=== PATIENT | female | born 1965 | race African-American/Black ===

== ENCOUNTER 2017-03-17 14:06 | Emergency (ER) | payer OTHER, MEDICARE ==
[~2017-03-17 14:06] MED LIST: ADVAIR DISKUS 21 DSK INH; AMIODARONE HCL200 MG PO; ATORVASTATIN CA20 MG PO; CARTIA XT120 MG PO; ENOXAPARIN100 MG/ML SC; GABAPENTIN100 MG PO; HUMALOG 100U100 U/ML SC; HYDROXYZINE HCL25 MG PO; LEVEMIR 10100 UNITS/ SC; LEVOTHYROXIN0.025 M1 PO; MIDODRINE HCL10 MG PO; MULTIVITAMIN1 TAB PO; MUPIROCIN CALCIUM2% TOP; OMEPRAZOLE20 MG PO; OXYCODONE HCL80 MG PO; OXYCONTIN (MONO40 MG PO; POLYETHYLE17 GM/Dos1 PO; PREDNISONE2.5 MG PO; PROTONIX 40MG T40 MG PO; RENAGEL800 MG PO; SENSIPAR60 MG PO; SODIUM BICARBO650 MG PO; TUSSIN100 MG/5 M PO; VENTOLIN H0.09 MG/Ac INH
--- NOTE | 2017-03-17 14:09 | ED AMS/SEIZURE/WEAK/DIZZY ---
History of Present Illness General Chief Complaint: General Adult Stated Complaint: BIBA FOR LETHARGY Source: patient, family, EMS Exam Limitations: clinical condition Vital Signs & Intake/Output Vital Signs & Intake/Output Vital Signs Date Time Temp Pulse Resp B/P B/P Pulse O2 O2 Flow FiO2 Mean Ox Delivery Rate 03/17 1638 96.8 76 20 127/59 99 Nasal 3.0L Cannula 03/17 1416 97.0 82 20 165/96 100 Room Air Allergies Coded Allergies: dipyridamole (From Persantine) (Severe, HEART PALPITATIONS AND RACING 10/03/16) piperacillin (From ZOSYN) (Severe, PT WAS INTUBATED LAST TIME 10/03/16) tazobactam (From ZOSYN) (Severe, PT WAS INTUBATED LAST TIME 10/03/16) Iodine and Iodide Containing Produc (Intermediate, ITCHING 10/03/16) metronidazole (From Flagyl) (Intermediate, MAKES HER HAVE BAD DREAMS 10/03/16) shellfish derived (Intermediate, ITCHING 10/03/16) Reconcile Medications Albuterol Sulfate (Ventolin Hfa) 90 MCG HFA.AER.AD 2 PUFF INH PRN SARCOIDOSIS (Reported) AMIODARONE HCL (Amiodarone HCl) 200 MG TABLET 1 TAB PO QAM HEART (Reported) Atorvastatin Calcium (Lipitor) 20 MG TABLET 1 TAB PO QPM CHOLESTEROL ( Reported) CINACALCET HCL (Sensipar) 60 MG TABLET 1 TAB PO QPM CALCIUM (Reported) DILTIAZEM HCL (Cartia Xt) 120 MG CAP.ER.24H 1 CAP PO QPM HEART (Reported) Enoxaparin Sodium 100 MG/ML SYRINGE 100 MG SC QPM BLOOD THINNER (Reported) FLUTICASONE/SALMETEROL (Advair 250-50 Diskus) 250 MCG-50 MCG/DOSE BLST.W.DEV 1 PUFF INH BID SARCOIDOSIS (Reported) Guaifenesin (Tussin) (Unknown Strength) SYR (Unknown Dose) PO PRN COUGH ( Reported) HYDROXYZINE HCL (Hydroxyzine HCl) 25 MG TABLET 1 TAB PO TID PRN ITCHING ( Reported) Insulin Detemir (Levemir) 100 UNIT/ML VIAL 14 UNITS SC QPM DIABETES (Reported ) Insulin Lispro (Humalog) 100 UNIT/ML VIAL DIABETES (Reported) Levothyroxine Sodium 0.025 MG TAB 0.025 MG PO QPM THYROID (Reported) MIDODRINE HCL (Midodrine HCl) 10 MG TABLET 1 TAB PO AD BP (Reported) Midodrine HCl 5 MG TABLET 20 MG PO DAILY HYPOTENSION (Reported) Multivitamin (Multiple Vitamins) 1 EACH TABLET 1 TAB PO DAILY SUPPLEMENT ( Reported) Mupirocin Calcium (Mupirocin) 2 % CREAM..G. 1 BUSHRA TOP PRN THIGHS/BACK ( Reported) Omeprazole 20 MG CAPSULE.DR 1 CAP PO QPM GI (Reported) OXYCODONE HCL (Oxycodone HCl ER) 80 MG TAB.ER.12H 1 TAB PO Q12H PAIN ( Reported) Oxycodone HCL (Oxycontin (Monograph Only)) 40 MG TAB.ER.12H 1 TAB PO BID PRN PAIN (Reported) Pantoprazole Sodium (Protonix) 40 MG TABLET. 1 TAB PO DAILY AC GI (Reported ) Polyethylene Glycol 3350 (Polyethylene Glycol (3350)) 17 GRAM POWD.PACK 17 GM PO EOD GI (Reported) Prednisone 2.5 MG TABLET 1 TAB PO QAM SARCOID (Reported) Sevelamer Hydrochloride (Renagel) 800 MG TAB 1 TAB PO WM KIDNEYS (Reported) Triage Nurses Notes Reviewed? yes Onset: Abrupt Duration: minute(s): (30) Timing: single episode today Injury Environment: home Severity: moderate, severe No Modifying Factors: none Associated Symptoms: LETHARGY HPI: 51 year old female with history of ESRD on HD, chronic painpresents via EMS from home for ams and lethargy. Patient's daughter reports that she was very sedated and could not be arroused. Daughter states that on arrival her mother looks much better but isstill off. She is unsure if she took more of her usual medications. Past History Travel History Traveled to [place] past 21 day No Medical History Any Pertinent Medical History? see below for history Cardiovascular: AFIB, CAD Respiratory: asthma, COPD Hepatic: SARCOIDOSIS Renal: UREMIA CHRONIC RENAL FAILURE Endocrine: diabetes Other Medical Hx: Sarcoidosis Pneumonia Vaccine: 09/18/16 Influenza Vaccine: 09/18/16 Surgical History Surgical History: BILAT ABOVE KNEE AMPUTAT Psychosocial History Who do you live with Patient/Self Services at Home Home Health Aide What is your primary language Guatemalan Family History Hx Contributory? No Review of Systems Review of Systems Constitutional: Denies: fever. EENTM: Reports: no symptoms. Respiratory: Denies: cough, short of breath. Cardiovascular: Denies: chest pain, palpitations. GI: Denies: abdominal pain. Genitourinary: Reports: no symptoms. Musculoskeletal: Reports: no symptoms. Skin: Reports: no symptoms. Neurological/Psychological: Reports: see HPI (lethargic), confusion. Hematologic/Endocrine: Denies: bruising, bleeding. Immunologic/Allergic: Reports: no symptoms. All Other Systems: Reviewed and Negative Physical Exam Physical Exam General Appearance: well developed/nourished, mild distress, moderate distress, obese, LETHARGIC Head: atraumatic, normal appearance Eyes: Bilateral: other (PINPOINT). Ears, Nose, Throat: normal pharynx, hearing grossly normal Neck: normal inspection, supple, full range of motion Respiratory: normal breath sounds, chest non-tender, no respiratory distress Cardiovascular: irregularly irregular Peripheral Pulses: 2+ radial (R), 2+ radial (L) Gastrointestinal: soft, non-tender Neurologic/Psych: no motor/sensory deficits, oriented x 3 Skin: intact, normal color, warm/dry Core Measures ACS in differential dx? No CVA/TIA Diagnosis: No Severe Sepsis Present: No Septic Shock Present: No Progress Differential Diagnosis: CVA/stroke, NARCOTIC OVERDOSE, CVA, TIA, SEPSIS, ELECTROLYTE SHIFT POST DIALYSIS Plan of Care: Orders Procedure Date/time Status Renal Dialysis Diet 03/18 B Active TROPONIN LEVEL 03/17 1409 Complete LACTIC ACID 03/17 1409 Complete ETHANOL 03/17 1409 Complete COMPREHENSIVE METABOLIC PANEL 03/17 1409 Complete CBC WITHOUT DIFFERENTIAL 03/17 1409 Complete EKG 03/17 1409 Active Laboratory Tests 03/17/17 1709: Lactic Acid Cancelled 03/17/17 1425: Anion Gap 17 H, Estimated GFR 12 L, BUN/Creatinine Ratio 7.9, Glucose 109 H, Lactic Acid 1.2, Calcium 7.5 L, Total Bilirubin 1.1, AST 36, ALT 44, Alkaline Phosphatase 268 H, Troponin I 0.06, Total Protein 8.3 H, Albumin 4.5, Globulin 3.8, Albumin/Globulin Ratio 1.2, CBC w Diff NO MAN DIFF REQ, RBC 5.70 H, MCV 77.5 L, MCH 23.0 L, RDW 20.9 H, MPV 9.6, Gran % 78.4 H, Lymphocytes % 10.9 L, Monocytes % 6.6, Eosinophils % 3.6, Basophils % 0.5, Absolute Granulocytes 6.2, Absolute Lymphocytes 0.9 L, Absolute Monocytes 0.5, Absolute Eosinophils 0.3, Absolute Basophils 0, PUBS MCHC 29.6 L, Serum Alcohol < 10.0 LABS, EKG, TELE MONITOR,NARCAN ORDERED 2:33 PM PATIENT REFUSING NARCAN, STATES SHE DOESN'T WANT THE MEDICATION. 03/17/2017 6:17:18 PM Patient now awake alert, easily arousable. She still closes her eyes when not engaged in conversation. Daughter at bedside states she appears much better and will watch her tonight. There is home care involved and she lives with her daughter. She feels comfortable in bringing her home. Patient was not using drugs inappropriately but asked her to be careful as to not over medicate. 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
[2017-03-17 14:33] LABS: ABSOLUTE EOSINOPHIL COUNT 0.3 /CUMM (0.0-0.7); ABSOLUTE LYMPH COUNT 0.9 /CUMM (1.2-3.4); MEAN PLATELET VOLUME 9.6 FL (7.4-10.4)
[2017-03-17 14:36] LABS: ABSOLUTE BASOPHIL COUNT 0 /CUMM (0.0-0.2); ABSOLUTE GRANULOCYTE CT 6.2 /CUMM (1.4-6.5); ABSOLUTE MONOCYTE COUNT 0.5 /CUMM (0.10-0.60); BASOPHIL % 0.5 % (0.0-2.0); EOSINOPHIL % 3.6 % (0-5); GRANULOCYTE % 78.4 % (42.2-75.2); HEMATOCRIT 44.2 % (37-47); MEAN CORPUSCULAR HGB CONC 29.6 G/DL (33.0-37.0); MEAN CORPUSCULAR VOLUME 77.5 FL (81.0-99.0); PLATELET COUNT 175 /CUMM (130-400); RBC DISTRIBUTION WIDTH 20.9 % (11.5-14.5); WHITE BLOOD CELL COUNT 7.9 /CUMM (4.8-10.8)
[2017-03-17] MEDS ORDERED: MIDODRINE HCL5 M1 PO (15:31)
[2017-03-17 16:38] VITALS: BP 127/59
== END 2017-03-17 18:58 ==
LOC: ERH 14:06
PROVIDERS: Emergency Medicine
DX: F11.20 Opioid dependence, uncomplicated (principal); M32.9 Systemic lupus erythematosus, unspecified; N18.6 End stage renal disease; Z99.2 Dependence on renal dialysis; I48.91 Unspecified atrial fibrillation; E11.9 Type 2 diabetes mellitus without complications; Z79.4 Long term (current) use of insulin
CPT/HCPCS: 93005; 93010; G0480; J2310